=== PATIENT | female | born 1965 | race Caucasian/White ===

== ENCOUNTER 2019-04-13 19:56 | Emergency (ER) | payer BC, OTHER ==
[2019-04-13 20:23] LABS: Bilirubin Moderate (Negative); Blood, Urine Negative (Negative); Glucose, Urine (Dipstick) 500 mg/dL (Negative); Leukocyte Negative (Negative); Nitrite Negative (Negative); Protein, Urine (Dipstick) 30 mg/dL (Neg-Trace); Urobilinogen 0.2 mg/dL (Less than 2)
[2019-04-13 20:24] LABS: Clarity Hazy (Clear)
[2019-04-13 20:31] LABS: Bacteria/HPF 1+ HPF (None Seen); RBC/HPF 0-3 HPF (0-3); Squamous Epithelial 0-3 HPF (0-3)
[2019-04-13] MEDS ORDERED: Glycopyrrolate 0.4 MG/ 2 ML VIAL ONE (20:45)
[2019-04-13] MEDS ORDERED: Fentanyl 100 MCG/2 ML VIAL ONE (20:45)
[2019-04-13] MEDS ORDERED: Ondansetron PF 4 MG/2 ML Vial ONE ×2 (20:45→22:36)
[2019-04-13 20:54] LABS: #Basophils 0.1 thou/uL (0.0-0.2); #Lymphocytes 1.6 thou/uL (1.20-3.40); #Monocytes 0.8 thou/uL (0.11-0.59); #Neutrophils 12.9 thou/uL (1.40-6.50); %Basophils 0.6 % (0.0-1.0); %Eosinophils 0.1 % (0.0-10.0); %Lymphocytes 10.3 % (21.0-51.0); Hemoglobin 12.9 g/dL (12.0-16.0); Mean Corpuscular HGB CONC 34.6 g/dL (32.0-36.0); Mean Corpuscular Hemoglobin 31.3 pg (27.0-31.0); Mean Corpuscular Volume 90.3 fL (78.0-98.0); Mean Platelet Volume 6.2 fL (7.4-10.4); Platelet Count 389 thou/uL (130-400); RBC Distribution Width 11.8 % (11.5-14.5); Red Blood Cell (RBC) Count 4.14 mill/uL (4.20-5.40); White Blood Cell (WBC) Count 15.4 thou/uL (4.8-10.8)
[2019-04-13 21:09] LABS: ALT (SGPT) 21 U/L (8-55); AST (SGOT) 18 U/L (5-34); Albumin 4.1 g/dL (3.5-5.0); Alkaline Phosphatase 58 U/L (40-150); Anion Gap 17 mmol/L (10-20); BUN (Urea Nitrogen) 19 mg/dL (9.8-20.1); Bilirubin, Total 0.9 mg/dL (0.2-1.2); Calc. Creatinine Clearance 0 mL/min (70-130); Calcium 9.8 mg/dL (7.8-10.44); Carbon Dioxide 23 mmol/L (22-29); Chloride 98 mmol/L (98-107); Estimated GFR-MDRD 34; Globulin 3.3 g/dL (2.4-3.5); Glucose 416 mg/dL (70-105); Lipase 23 U/L (8-78); Protein, Total 7.4 g/dL (6.0-8.3); Sodium 134 mmol/L (136-145)
[2019-04-13] MEDS ORDERED: metroNIDAZOLE 500 MG/100 ML BAG ONE (21:57)
[2019-04-13] MEDS ORDERED: Piperacillin/Tazobactam 4.5 GM VIAL ONE (22:01)
[2019-04-13] MEDS ORDERED: Sodium Chloride 0.9% 100 ML ONE (22:02)
--- NOTE | 2019-04-13 22:12 | CT ---
CT ABDOMEN AND PELVIS WITHOUT CONTRAST: Date: 04-13-[address] of the abdomen and pelvis was done for evaluation of lower abdominal pain. Axial slices wer e acquired followed by coronal and sagittal reconstructions. IV contrast was not used due to a slight ly high Creatinine. FINDINGS: There are two major findings on this study. First, the patient's sigmoid colon is markedly thickened and there are numerous diverticula along with abundant severe surrounding inflammatory changes. There is also an adjacent loop of small bowel next to this area that is markedly thickened and has inflamm atory change around it. The second finding is an abundance of free air throughout the abdomen collect ing in many different places. See comments and impression below. The lung bases are clear. The liver, spleen, pancreas, gallbladder, adrenal glands, kidneys and abdom inal aorta showed no acute findings within the limitations of this study. The major abnormal finding in the upper abdomen is multiple pockets of free air. The CT of the pelvis has findings listed above. There is no focal abscess or significant free fluid c ollection seen. IMPRESSION: 1. Findings most likely represent severe diverticulitis of the sigmoid colon with adjacent inflammato ry involvement of near-by small bowel. Less likely would be a severe case of colitis/enteritis. Due t o the abundance of free air, there obviously has been a perforation which further makes diverticuliti s more likely. 2. Free air throughout the abdomen Findings discussed with Dr. Morocho at [id number] on 04-13-19. POS: HOME
== END 2019-04-13 22:49 | disposition short-term general hospital (02) ==
LOC: BURERS 19:56
DX: K57.20 Diverticulitis of large intestine with perforation and abscess without bleeding (principal); E11.43 Type 2 diabetes mellitus with diabetic autonomic (poly)neuropathy; R11.0 Nausea; K31.84 Gastroparesis; E78.5 Hyperlipidemia, unspecified; I10 Essential (primary) hypertension; F41.9 Anxiety disorder, unspecified; F17.210 Nicotine dependence, cigarettes, uncomplicated; Z79.899 Other long term (current) drug therapy; Z79.4 Long term (current) use of insulin
CPT/HCPCS: 36416; 74176; 80053; 81003; 81015; 83605; 83690; 85025; 96361; 96365; 96375; 96376; J2405; J2543; J3010; J3490